=== PATIENT | male | born 1995 | race American Indian/Alaskan Native ===

== ENCOUNTER 2017-04-28 03:39 | Emergency (ER) | payer OTHER ==
[2017-04-28 04:04] VITALS: BP 118/74; PULSE 96; RESP 18; TEMP 97.7; O2SAT 99
[2017-04-28] MEDS ORDERED: TDAP Vaccine 0.5 mL Syr IM ONE (04:36)
[2017-04-28] MEDS ORDERED: Amoxicillin-Clav 875-125 mg Tab PO STA (04:36)
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
== END 2017-04-28 04:53 | disposition home or self-care (01) ==
LOC: ED 03:39
DX: S60.311A Abrasion of right thumb, initial encounter (principal); Y04.1XXA Assault by human bite, initial encounter; Y93.9 Activity, unspecified; Y92.9 Unspecified place or not applicable; Z23 Encounter for immunization